=== PATIENT | male | born 1985 | race Caucasian/White ===

== ENCOUNTER 2022-06-05 19:16 | Emergency (ER) | payer OTHER ==
[2022-06-05 20:56] LABS: CORONAVIRUS 2019 SARS-COV-2 NEGATIVE (NEGATIVE); INFLUENZA A NAA NEGATIVE (NEGATIVE)
[2022-06-05 20:58] LABS: BASOPHIL 0.3 % (0-2); EOSINOPHIL 0.3 % (0-5); HCT 41.3 % (42.0-52.0); HGB 13.7 g/dl (13.2-18.0); LYMPHOCYTE 11.2 % (15-48); MCH 28.7 pg (25.0-31.0); MCHC 33.2 g/dL (32.0-36.0); MCV 86.6 fL (78.0-100.0); MONOCYTE 13.3 % (0-12); MPV 9.3 fL (6.0-9.5); NEUTROPHIL 74.4 % (41-80); NRBC 0; PLT 241 K/uL (150-400); RBC 4.77 M/uL (4.70-6.00); RDW 12.1 % (11.5-14.0); WBC 13.1 K/uL (4.0-10.5)
[2022-06-05 21:05] LABS: ALBUMIN 3.6 g/dL (3.4-5.0); BILIRUBIN - TOTAL 0.8 mg/dL (0.2-1.0); CREATININE 0.92 mg/dL (0.67-1.17); GLOBULIN (CALCULATION) 4.5 g/dL; POTASSIUM 3.5 mmol/L (3.5-5.1); TOTAL PROTEIN 8.1 g/dL (6.4-8.2)
== END 2022-06-06 00:24 | disposition other institution (70) ==
LOC: FER 19:16
PROVIDERS: Emergency Medicine
DX: J36 Peritonsillar abscess (principal); Z20.822 Contact with and (suspected) exposure to COVID-19
CPT/HCPCS: 36415; 70360; 70491; 80053; 83605; 85025; 87880; J1100; J1885; J2405; J2543; J7030; Q9967; U0002